=== PATIENT | female | born 1985 | race Caucasian/White ===

== ENCOUNTER 2016-06-03 10:56 | Emergency (ER) | payer OTHER ==
[2016-06-03 12:01] VITALS: BP 126/80
--- NOTE | 2016-06-03 14:00 | UC ---
FLU HPI - HPI Summary HPI Summary: 5d body aches, headache, fatigue, malaise, ST, nasal drainage, dry cough. Many household contacts ill with same. - History of Current Complaint Chief Complaint: UCRespiratory Stated Complaint: COUGH, SORE THROAT, FEVER Time Seen by Provider: 06/03/16 13:12 Hx Obtained From: Patient Onset/Duration: Gradual Onset, Lasting Days - 5 Severity Currently: Mild Severity Initially: Mild Associated Signs & Symptoms: Positive: Fever, Myalgia, Cough, Sore Throat, Nasal Congestion, Headache Related Hx: Possible Flu/Infectious Exposure - Risk Factors Influenza Risk Factors: Negative - Allergy/Home Medications Allergies/Adverse Reactions: Allergies Allergy/AdvReac Type Severity Reaction Status Date / Time No Known Allergies Allergy Verified 06/03/16 12:01 Home Medications: Home Medications Amoxicillin CAP* 500 mg PO ONCE 06/03/16 [History Confirmed 06/03/16] Chzndkzzgxmic-[id number]-Snrfw [Vicks Dayquil/Nyquil Cold] 1 mis PO ONCE PRN 12/10 [History Confirmed 06/03/16] PMH/Surg Hx/FS Hx/Imm Hx Previously Healthy: Yes - Surgical History Surgical History: None - Family History Known Family History: Positive: Hypertension - Social History Occupation: Disabled Lives: With Family Alcohol Use: Rare Substance Use Type: None Smoking Status (MU): Never Smoked Tobacco Review of Systems Constitutional: Fever, Chills, Fatigue Skin: Negative Eyes: Negative ENT: Sore Throat - better now, Nasal Discharge Respiratory: Cough Cardiovascular: Negative Gastrointestinal: Negative Genitourinary: Negative Motor: Negative Neurovascular: Negative Musculoskeletal: Myalgia Neurological: Negative Psychological: Negative All Other Systems Reviewed And Are Negative: Yes Physical Exam Triage Information Reviewed: Yes Appearance: Well-Appearing, No Pain Distress, Well-Nourished Vital Signs: Initial Vital Signs Temp 99.0 F 06/03/16 11:56 Pulse 93 06/03/16 11:56 Resp 16 06/03/16 11:56 BP 126/80 06/03/16 11:56 Pulse Ox 100 06/03/16 11:56 Vital Signs Reviewed: Yes Eye Exam: Normal ENT Exam: Normal ENT: Positive: Pharynx normal, TMs normal. Negative: Tonsillar swelling, Tonsillar exudate, Trismus, Muffled/hoarse voice Neck exam: Normal Neck: Positive: Supple Respiratory Exam: Normal Respiratory: Positive: Chest non-tender, Lungs clear, Normal breath sounds, No respiratory distress, No accessory muscle use Cardiovascular Exam: Normal Musculoskeletal Exam: Normal Neurological Exam: Normal Psychological Exam: Normal Skin Exam: Normal Diagnostics - Laboratory Diagnostic Studies Completed/Ordered: flu A pos Flu Course/Dx - Differential Dx/Diagnosis Differential Diagnosis/HQI/PQRI: Bronchitis, Influenza, Upper Respiratory Infection Provider Diagnoses: influenza Discharge - Discharge Plan Condition: Stable Disposition: HOME Prescriptions: Guaifenesin-Codeine [Cheratussin AC] 1 - 2 teasp PO Q6HR PRN #120 ml MDD 30ml PRN Reason: Cough Pseudoephedrine HCl [Sudafed 12 Hour] 120 mg PO BID PRN #20 tab PRN Reason: Congestion Patient Education Materials: Influenza (ED) Referrals: Indio Hopper MD [Primary Care Provider] -
== END 2016-06-03 14:09 | disposition home or self-care (01) ==
LOC: UCCORT 10:56
DX: J11.1 Influenza due to unidentified influenza virus with other respiratory manifestations (principal)
CPT/HCPCS: 87502; 99212; G0463

== ENCOUNTER 2018-11-30 19:02 | Emergency (ER) | payer BC ==
[2018-11-30 19:23] VITALS: BP 121/70
[2018-11-30] MEDS ORDERED: Tetan/Diph/Pertus SYR(Tdap)* 0.5 ML SYR(BOOSTRIX) use SYR IM ONE (19:32)
--- NOTE | 2018-11-30 19:32 | UC ---
Bite Injury/Animal HPI - HPI Summary HPI Summary: Pt presents with c/o dog bite to right forearm. Pt states the dog is new to her and belongs to her father who lives on [address]. Pt states she was petting the dog and it jumped on top of her and when she attempted to get up, the dog bit her right forearm multiple times. Pt is unsure vaccination status of dog will contact business analysis professional. Pt is not UTD with tetanus. - History of Current Complaint Chief Complaint: UCBiteInjury Stated Complaint: DOG BITE RT FOREARM Time Seen by Provider: 11/30/18 19:21 Hx Obtained From: Patient Hx Last Menstrual Period: 11/17/18 ?: No Severity Currently: Moderate Severity Initially: Moderate Pain Intensity: 6 Onset/Duration: Sudden Onset Type of Bite: Pet Has Animal Been Immunized?: Unknown Character: Puncture Alleviating Factor(s): Rest Associated Signs And Symptoms: Positive: Negative Hx of Bite: Unprovoked Animal Available for Observation: Yes Animal Control Notified: No - Risk Factors Infection/Sepsis Risk Factors: Negative - Allergies/Home Medications Allergies/Adverse Reactions: Allergies Allergy/AdvReac Type Severity Reaction Status Date / Time No Known Allergies Allergy Verified 11/30/18 19:15 PMH/Surg Hx/FS Hx/Imm Hx Previously Healthy: Yes - Surgical History Surgical History: None - Family History Known Family History: Positive: Hypertension - Social History Occupation: Unemployed Lives: With Family Alcohol Use: None Substance Use Type: None Smoking Status (MU): Never Smoked Tobacco Have You Smoked in the Last Year: No - Immunization History Vaccination Up to Date: No Review of Systems All Other Systems Reviewed And Are Negative: Yes Constitutional: Positive: Negative Skin: Positive: Other - multiple puncture wounds, multiple abrasions right forearm Eyes: Positive: Negative ENT: Positive: Negative Respiratory: Positive: Negative Cardiovascular: Positive: Negative Gastrointestinal: Positive: Negative Genitourinary: Positive: Negative Motor: Positive: Negative Neurovascular: Positive: Negative Musculoskeletal: Positive: Negative, Myalgia Neurological: Positive: Negative Psychological: Positive: Negative Is Patient Immunocompromised?: No Physical Exam Triage Information Reviewed: Yes Appearance: Well-Appearing Vital Signs: Initial Vital Signs Temp 98.7 F 11/30/18 19:16 Pulse 76 11/30/18 19:16 Resp 16 11/30/18 19:16 BP 121/70 11/30/18 19:16 Pulse Ox 100 08/07/19 19:16 Vital Signs Reviewed: Yes Eye Exam: Normal ENT Exam: Normal ENT: Positive: Hearing grossly normal Dental Exam: Normal Neck exam: Normal Respiratory Exam: Normal Respiratory: Positive: No respiratory distress Musculoskeletal: Positive: Strength Intact, ROM Intact Neurological Exam: Normal Psychological Exam: Normal Skin Exam: Other - multiple puncture wounds, bleeding controlled, multiple abrasions to right forearm Diagnostics - Radiology No standard instances Radiology Interpretation Completed By: ED Physician - negative for fracture and FB Bite Injury Course/Dx - Differential Dx/Diagnosis Differential Diagnosis/HQI/PQRI: Crush Injury, Puncture, Rabies Exposure Provider Diagnosis: Dog bite of arm Discharge - Sign-Out/Discharge Documenting (check all that apply): Patient Departure All imaging exams completed and their final reports reviewed: No - Discharge Plan Condition: Stable Disposition: HOME Prescriptions: Amoxicillin/Clavulanate TAB* [Augmentin TAB 500 mg*] 500 mg PO Q12H #20 tab Patient Education Materials: Animal Bite (ED) Referrals: Indio Hopper MD [Primary Care Provider] - If Needed - Billing Disposition and Condition Condition: STABLE Disposition: Home
--- NOTE | 2018-12-01 07:30 | UC ---
- Progress Note Progress Note: Final radiologist reading for a right forearm x-ray from November 30, 2018 comes back as no fracture and no evidence of foreign body. Provider interpretation from same date is the same therefore there is no discrepancy. Course/Dx - Diagnoses Provider Diagnoses: Dog bite of arm Discharge - Sign-Out/Discharge Documenting (check all that apply): Patient Departure All imaging exams completed and their final reports reviewed: Yes - Discharge Plan Condition: Stable Disposition: HOME Prescriptions: Amoxicillin/Clavulanate TAB* [Augmentin TAB 500 mg*] 500 mg PO Q12H #20 tab Patient Education Materials: Animal Bite (ED) Referrals: Indio Hopper MD [Primary Care Provider] - If Needed - Billing Disposition and Condition Condition: STABLE Disposition: Home
== END 2018-11-30 20:09 | disposition home or self-care (01) ==
LOC: UCCORT 19:02
DX: S51.851A Open bite of right forearm, initial encounter (principal); W54.0XXA Bitten by dog, initial encounter; Y93.89 Activity, other specified; Y92.9 Unspecified place or not applicable
CPT/HCPCS: 90471; 90715; 99212; G0463